=== PATIENT | female | born 1955 | race Caucasian/White ===

== ENCOUNTER → 2019-11-07 | Outpatient (CLI) | payer BC | END | disposition home or self-care (01) | LOC: LAB 13:39 → LAB SHORT 13:39 | DX: R30.9 Painful micturition, unspecified (principal) | CPT/HCPCS: 87086 ==

== ENCOUNTER 2021-06-29 09:28 | Day surgery (SDC) | payer BC ==
[~2021-06-29] VITALS: Ht 162.6 cm; Wt 87.3 kg
[~2021-06-29 09:28] MED LIST: Estradiol1 MG PO; PROG100 PO
--- NOTE | 2021-06-29 10:01 | NUR ---
PT AMBULATES TO [facility] c STE[facility]Y GAIT. History, Chart, Medications and Allergies reviewed before start of procedure. Lungs clear T/O to Auscultation. Patient states colon prep results clear. Patient States Post-Procedure ride home has been arranged.
--- NOTE | 2021-06-29 10:17 | NUR ---
06/29/21 Noreen Calloway History, Chart, Medications and Allergies reviewed before start of procedure. Patient confirms NPO status and agrees with scheduled surgery. 3-LEAD EKG REVIEWED WITH PHYSICIAN PRIOR TO START OF PROCEDURE. MONITOR INTACT WITH CONTINUOUS PULSE OXIMETRY AND INTERMITTENT BP. PATIENT DETERMINED TO BE ASA APPROPRIATE FOR PROPOFOL SEDATION PRIOR TO START OF PROCEDURE BY
--- NOTE | 2021-06-29 12:27 | NUR ---
Patient up to Ambulate independently. Gait steady. Discharge instructions reviewed with patient. Patient verbalizes understanding. Copy given to patient to take home. Discharged via wheelchair to private car for ride home WITH .
== END 2021-06-29 12:30 | disposition home or self-care (01) ==
LOC: ORSCMMR 09:28 → ORSCSDS 10:15 → ORD 10:15 → ORSCMMR 10:15
PROVIDERS: Student in an Organized Health Care Education/Training Program
PROC: 0DBK8ZX Excision of Ascending Colon, Via Natural or Artificial Opening Endoscopic, Diagnostic (ICD-10-PCS; principal; 2021-06-29 10:15)
PROC: 0DBH8ZX Excision of Cecum, Via Natural or Artificial Opening Endoscopic, Diagnostic (ICD-10-PCS; principal; 2021-06-29 10:15)
PROC: 3E0H8KZ Introduction of Other Diagnostic Substance into Lower GI, Via Natural or Artificial Opening Endoscopic (ICD-10-PCS; principal; 2021-06-29 10:15)
DX: Z12.11 Encounter for screening for malignant neoplasm of colon (principal); Z86.010 Personal history of colon polyps; D12.0 Benign neoplasm of cecum; D12.2 Benign neoplasm of ascending colon; K52.9 Noninfective gastroenteritis and colitis, unspecified; Z79.899 Other long term (current) drug therapy
CPT/HCPCS: 88305; J2704; J7120

== ENCOUNTER 2022-09-29 07:44 | Day surgery (SDC) | payer MEDICARE, BC ==
[~2022-09-29] VITALS: Ht 162.6 cm; Wt 86.5 kg
[2022-09-29] MEDS ORDERED: ROSU10TA (07:53)
[2022-09-29] MEDS ORDERED: ASPI81CH (07:53)
[2022-09-29 09:57] VITALS: BP 112/70
== END 2022-09-29 10:09 | disposition home or self-care (01) ==
LOC: ORSCSDS 07:44
PROVIDERS: Student in an Organized Health Care Education/Training Program
PROC: 0DBK8ZX Excision of Ascending Colon, Via Natural or Artificial Opening Endoscopic, Diagnostic (ICD-10-PCS; principal; 2022-09-29 09:00)
PROC: 0DBL8ZX Excision of Transverse Colon, Via Natural or Artificial Opening Endoscopic, Diagnostic (ICD-10-PCS; principal; 2022-09-29 09:00)
DX: Z86.010 Personal history of colon polyps (principal); D12.2 Benign neoplasm of ascending colon; K57.30 Diverticulosis of large intestine without perforation or abscess without bleeding; I10 Essential (primary) hypertension; Z79.899 Other long term (current) drug therapy
CPT/HCPCS: 88305; J2704; J7120

== ENCOUNTER → 2024-02-24 | Outpatient (CLI) | payer MEDICARE, BC ==
[~2024-02-24] MED LIST changes: +ASPI81CH; +ROSU10TA
== END ==
LOC: LAB 15:45 → LAB SHORT 15:45
DX: R30.0 Dysuria (principal)
CPT/HCPCS: 87077; 87086; 87186

== ENCOUNTER → 2024-07-08 | Outpatient (CLI) | payer MEDICARE, BC ==
[2024-07-15 11:41] LABS: HPV HIGH RISK BY TMA Not Detected; HPV SOURCE Cervical
== END ==
LOC: LAB SHORT 16:12 → LAB 16:12
PROVIDERS: Student in an Organized Health Care Education/Training Program
DX: Z12.4 Encounter for screening for malignant neoplasm of cervix (principal)
CPT/HCPCS: 87624; G0123

== ENCOUNTER → 2025-04-03 | Outpatient (CLI) | payer MEDICARE, BC ==
[2025-04-03 19:00] LABS: BASOPHILS ABSOLUTE AUTO 0.10 K/mm3 (0.00-0.23); BASOPHILS PERCENT AUTO 1 % (0-2); EOSINOPHILS ABSOLUTE AUTO 0.04 K/mm3 (0.00-0.68); EOSINOPHILS PERCENT AUTO 0 % (0-6); Hematocrit 41.6 % (33.0-51.0); Hemoglobin 13.8 g/dL (11.5-16.0); IMMATURE GRAN ABSOLUTE AUTO 0.03 K/mm3 (0.00-0.10); IMMATURE GRAN PERCENT AUTO 0 % (0-1); LYMPHOCYTES ABSOLUTE AUTO 3.03 K/mm3 (0.84-5.20); LYMPHOCYTES PERCENT AUTO 31 % (21-46); MONOCYTES ABSOLUTE AUTO 0.55 K/mm3 (0.16-1.47); MONOCYTES PERCENT AUTO 6 % (4-13); Mean Corpuscular HGB Conc 33.2 g/dL (31.5-36.5); Mean Corpuscular Volume 88 fL (80-100); NEUTROPHILS ABSOLUTE AUTO 6.18 K/mm3 (1.96-9.15); NEUTROPHILS PERCENT AUTO 62 % (41-73); NRBC ABSOLUTE 0.00 K/mm3 (0.00-0.02); NRBC Auto 0.0 /100 WBC (0.0-0.2); Platelet Count 300 K/mm3 (150-400); RDW Coefficient Variation 12.9 % (11.7-14.2); RDW Standard Deviation 41.9 fL (35.1-46.3)
[2025-04-03 19:16] LABS: Alanine Aminotransfer (ALT/SGP 42 U/L (12-78); Albumin, Blood 3.6 g/dL (3.4-5.0); Albumin/Globulin Ratio 0.9 (0.8-1.8); Anion Gap 8 mmol/L (3-11); Aspartate Aminotrans (AST/SGOT 24 U/L (12-37); Bilirubin, Total 0.4 mg/dL (0.1-1.0); Blood Urea Nitrogen 24 mg/dL (8-24); CHOL/HDL RATIO 3.9; CO2, Blood 28 mmol/L (21-32); Calcium, Blood 9.3 mg/dL (8.5-10.1); Chloride, Blood 107 mmol/L (98-108); Cholesterol 159 mg/dL (50-200); Creatinine, Blood 0.99 mg/dL (0.40-1.00); Globulin, Blood 4.1 g/dL (2.2-4.0); Glucose, Blood 112 mg/dL (70-99); HDL Cholesterol 41 mg/dL (>39); LDL/HDL RATIO 1.7; Low Density Lipoprotein Chol 72 mg/dL (0-110); Potassium, Blood 4.0 mmol/L (3.5-5.5); Sodium, Blood 139 mmol/L (136-145); Total Protein, Blood 7.7 g/dL (6.4-8.2); Triglycerides 232 mg/dL (30-160); Very Low Density Lipoprot Chol 46 mg/dL (6-32)
== END ==
LOC: LAB 17:42 → LAB SHORT 17:42
PROVIDERS: Student in an Organized Health Care Education/Training Program
DX: E78.2 Mixed hyperlipidemia (principal); N94.10 Unspecified dyspareunia; R73.03 Prediabetes
CPT/HCPCS: 80053; 80061; 83036; 85025